=== PATIENT | female | born 1960 ===

== ENCOUNTER 2019-06-23 08:45 | Outpatient (CLI) | payer BC | END 2019-06-23 08:48 | disposition home or self-care (01) | LOC: SONOGRAMA 08:45 | DX: E04.1 Nontoxic single thyroid nodule (principal) ==

== ENCOUNTER 2024-01-14 11:53 | Outpatient (CLI) | payer BC | END 2024-01-14 11:55 | disposition home or self-care (01) | LOC: SONOGRAMA 11:53 | PROVIDERS: ATTEND Pathology Anatomic Pathology & Clinical Pathology | DX: D34 Benign neoplasm of thyroid gland (principal); E07.89 Other specified disorders of thyroid; E04.2 Nontoxic multinodular goiter ==